=== PATIENT | female | born 1955 | race African-American/Black ===

== ENCOUNTER 2017-10-05 06:42 | Emergency (ER) | payer MEDICAID ==
[~2017-10-05] VITALS: Ht 167.6 cm; Wt 108.0 kg
[~2017-10-05 06:42] MED LIST: ACET-2178; ACET-3161; BENA20TA77; BUS5; DOCU-138; HYDR-3513; HYDR25TA; LANS30CA52; LEVA0.6320; LEVO125T; LORA10CA; METR500T; NAP5EC; RANI150T12; SEE MED SHEET; SEE MED. SHEET; SERT50TA
[2017-10-05] MEDS ORDERED: KETOROLAC 60MG/2ML VIAL IM ONE (11:00)
[2017-10-05 11:35] VITALS: BP 137/76
== END 2017-10-05 11:39 | disposition home or self-care (01) ==
LOC: ER 06:42
DX: G43.909 Migraine, unspecified, not intractable, without status migrainosus (principal); L08.9 Local infection of the skin and subcutaneous tissue, unspecified; I10 Essential (primary) hypertension; E03.9 Hypothyroidism, unspecified; M79.7 Fibromyalgia; J45.909 Unspecified asthma, uncomplicated; Z88.8 Allergy status to other drugs, medicaments and biological substances
CPT/HCPCS: 96372; 99283; J1885

== ENCOUNTER 2019-01-08 06:06 | Emergency (ER) | payer MEDICAID ==
[~2019-01-08] VITALS: Ht 167.6 cm; Wt 107.0 kg
[~2019-01-08 06:06] MED LIST changes: -RANI150T12; +RANI150T43
[2019-01-08] MEDS ORDERED: ALBUTEROL (0.083%) 2.5MG/3ML NEB HHN STA (07:20)
[2019-01-08 07:36] VITALS: BP 137/81
[2019-01-08] MEDS ORDERED: METOCLOPRAMIDE HCL 10MG TABLET PO ONE (08:45)
[2019-01-08] MEDS ORDERED: IBUPROFEN 800MG TABLET PO ONE (08:45)
[2019-01-08] MEDS ORDERED: KETOROLAC 60MG/2ML VIAL IM ONE (09:00)
== END 2019-01-08 09:30 | disposition home or self-care (01) ==
LOC: ER 06:06
DX: B34.9 Viral infection, unspecified (principal); R51 Headache; I10 Essential (primary) hypertension; J45.909 Unspecified asthma, uncomplicated; M19.90 Unspecified osteoarthritis, unspecified site; E03.9 Hypothyroidism, unspecified; Z90.710 Acquired absence of both cervix and uterus; Z88.8 Allergy status to other drugs, medicaments and biological substances
CPT/HCPCS: 71045; 93005; 94640; 96372; 99283; J1885; J7611; J8597

== ENCOUNTER 2020-04-06 11:29 | Emergency (ER) | payer MEDICAID ==
[~2020-04-06] VITALS: Ht 167.6 cm; Wt 105.0 kg
[~2020-04-06 11:29] MED LIST changes: -ACET-2178; +RANI-655; -RANI150T43; +TOPUD
[2020-04-06] MEDS ORDERED: KETOROLAC 30MG/ML VIAL IM ONE (12:15)
[2020-04-06 14:00] VITALS: BP 142/87
[2020-04-06] MEDS ORDERED: ONDANSETRON 4MG ODT PO ONE (14:00)
== END 2020-04-06 14:26 | disposition home or self-care (01) ==
LOC: ER 11:29
DX: S33.5XXA Sprain of ligaments of lumbar spine, initial encounter (principal); X58.XXXA Exposure to other specified factors, initial encounter; Y93.89 Activity, other specified; Y92.89 Other specified places as the place of occurrence of the external cause; Y99.8 Other external cause status; D64.9 Anemia, unspecified; J45.909 Unspecified asthma, uncomplicated; I10 Essential (primary) hypertension; Z90.710 Acquired absence of both cervix and uterus; Z98.890 Other specified postprocedural states; H40.9 Unspecified glaucoma; Z79.899 Other long term (current) drug therapy; Z88.8 Allergy status to other drugs, medicaments and biological substances
CPT/HCPCS: 72100; 73502; 96372; 99284; J1885; Q0162

== ENCOUNTER 2020-04-30 09:44 | Emergency (ER) | payer MEDICAID ==
[~2020-04-30] VITALS: Ht 167.6 cm; Wt 104.0 kg
[2020-04-30 11:17] LABS: BASOPHILS % 0.9 % (0.0-2.0); EOSINOPHILS % 3.7 % (0.0-5.0); HEMATOCRIT. 41.4 % (36.0-48.0); HEMOGLOBIN. 13.6 g/dL (12.0-16.0); LYMPHOCYTES % 20.5 % (20.0-50.0); MEAN CORPUSCULAR HEMOGLOBIN 26.9 pg (28.0-32.0); MEAN CORPUSCULAR VOLUME 81.8 fL (81.0-99.0); MEAN PLATELET VOLUME 7.7 fl (7.4-10.4); MONOCYTES % 6.2 % (2.0-8.0); NEUTROPHILS % 68.7 % (40.0-76.0); PLATELET 296 x1000/uL (130-400); RED BLOOD CELL COUNT 5.06 mill/uL (4.2-5.4); RED CELL DISTRIBUTION WIDTH 14.9 % (11.6-14.6)
[2020-04-30 11:20] LABS: CLARITY URINE CLEAR (CLEAR); COLOR URINE YELLOW (YELLOW); KETONES URINE NEGATIVE (NEGATIVE); LEUKOCYTE ESTERASE URINE NEGATIVE (NEGATIVE); NITRITE URINE NEGATIVE (NEGATIVE); OCCULT BLOOD URINE NEGATIVE (NEGATIVE); PH URINE 6.5 (4.5-8.0); PROTEIN URINE NEGATIVE (NEGATIVE); SPECIFIC GRAVITY URINE 1.019 (1.005-1.030)
[2020-04-30 11:21] LABS: CHLORIDE 106 mEq/L (98-107)
[2020-04-30] MEDS ORDERED: KETOROLAC 60MG/2ML VIAL IM ONE (11:45)
[2020-04-30] MEDS ORDERED: ONDANSETRON 4MG ODT PO ONE (12:00)
[2020-04-30 12:04] VITALS: BP 134/70
[2020-04-30] MEDS ORDERED: DEXAMETHASONE 4MG/ML 1ML VIAL IM ONE (13:00)
== END 2020-04-30 14:11 | disposition home or self-care (01) ==
LOC: ER 09:44
DX: M54.5 Low back pain (principal); H40.9 Unspecified glaucoma; J45.909 Unspecified asthma, uncomplicated; E05.90 Thyrotoxicosis, unspecified without thyrotoxic crisis or storm; I10 Essential (primary) hypertension; D64.9 Anemia, unspecified; Z88.8 Allergy status to other drugs, medicaments and biological substances; Z90.710 Acquired absence of both cervix and uterus
CPT/HCPCS: 36415; 73562; 80053; 81003; 85025; 96372; 99284; J1100; J1885; Q0162

== ENCOUNTER → 2020-07-25 | Outpatient (CLI) | payer MEDICARE, MEDICAID | END | disposition home or self-care (01) | LOC: MRI 08:39 | DX: M48.061 Spinal stenosis, lumbar region without neurogenic claudication (principal) | CPT/HCPCS: 72148 ==

== ENCOUNTER → 2021-01-14 | Outpatient (CLI) | payer MEDICARE, MEDICAID | END | disposition home or self-care (01) | LOC: RAD 08:43 | PROVIDERS: ATTEND Internal Medicine Cardiovascular Disease | DX: M25.552 Pain in left hip (principal); M25.562 Pain in left knee | CPT/HCPCS: 73502; 73552; 73562 ==

== ENCOUNTER 2021-12-09 12:05 | Emergency (ER) | payer MEDICARE, MEDICAID ==
[~2021-12-09] VITALS: Ht 165.1 cm; Wt 100.0 kg
[2021-12-09 12:10] VITALS: BP 152/73
[2021-12-09] MEDS ORDERED: ACETAMINOPHEN 325MG TABLET PO STA (12:51)
[2021-12-09] MEDS ORDERED: BACITRACIN ZINC OINT UDPKT TOP ONE (14:00)
== END 2021-12-09 14:27 | disposition home or self-care (01) ==
LOC: ER 12:05
DX: M79.671 Pain in right foot (principal); S90.851A Superficial foreign body, right foot, initial encounter; I10 Essential (primary) hypertension; M79.7 Fibromyalgia; J45.909 Unspecified asthma, uncomplicated; E03.9 Hypothyroidism, unspecified; H40.9 Unspecified glaucoma; W22.8XXA Striking against or struck by other objects, initial encounter; Y93.89 Activity, other specified; Y92.9 Unspecified place or not applicable; Z88.8 Allergy status to other drugs, medicaments and biological substances; Z90.710 Acquired absence of both cervix and uterus; Z91.048 Other nonmedicinal substance allergy status; Z98.890 Other specified postprocedural states
CPT/HCPCS: 73630; 99284

== ENCOUNTER → 2021-12-24 | Outpatient (CLI) | payer MEDICARE, MEDICAID | END | disposition home or self-care (01) | LOC: NM 07:44 | PROVIDERS: ATTEND Internal Medicine Endocrinology, Diabetes & Metabolism | DX: E04.2 Nontoxic multinodular goiter (principal); E21.0 Primary hyperparathyroidism | CPT/HCPCS: 76536; 78070; A9500; C1893 ==

== ENCOUNTER → 2022-02-11 | Day surgery (SDC) | payer MEDICARE, MEDICAID | END | disposition home or self-care (01) | LOC: RAD 09:44 | PROVIDERS: ATTEND Internal Medicine | DX: E04.1 Nontoxic single thyroid nodule (principal); Z79.899 Other long term (current) drug therapy; Z88.8 Allergy status to other drugs, medicaments and biological substances | CPT/HCPCS: 10005; 88172; 88173 ==

== ENCOUNTER 2022-10-29 12:23 | Emergency (ER) | payer MEDICARE, MEDICAID ==
[~2022-10-29] VITALS: Ht 167.6 cm; Wt 100.0 kg
[2022-10-29] MEDS ORDERED: ONDANSETRON 4MG ODT PO STA (12:40)
[2022-10-29 14:02] LABS: BASOPHILS % 0.3 % (0.0-2.0); HEMATOCRIT. 43.1 % (36.0-48.0); HEMOGLOBIN. 14.1 g/dL (12.0-16.0); LYMPHOCYTES % 22.5 % (20.0-50.0); MEAN CORPUSCULAR VOLUME 82.5 fL (81.0-99.0); MEAN PLATELET VOLUME 7.4 fl (7.4-10.4); MONOCYTES % 6.9 % (2.0-8.0); NEUTROPHILS % 69.3 % (40.0-76.0); PLATELET 323 x1000/uL (130-400); RED BLOOD CELL COUNT 5.22 mill/uL (4.2-5.4); RED CELL DISTRIBUTION WIDTH 15.3 % (11.6-14.6)
[2022-10-29 14:13] LABS: CHLORIDE 102 mEq/L (98-107)
[2022-10-29] MEDS ORDERED: LIDOCAINE 5% PATCH TOP SCH (14:45)
[2022-10-29] MEDS ORDERED: ACETAMINOPHEN 325MG TABLET PO ONE (14:45)
[2022-10-29 15:11] VITALS: BP 134/62
[2022-10-29 16:06] LABS: CLARITY URINE CLEAR (CLEAR); COLOR URINE YELLOW (YELLOW); KETONES URINE NEGATIVE (NEGATIVE); LEUKOCYTE ESTERASE URINE NEGATIVE (NEGATIVE); NITRITE URINE NEGATIVE (NEGATIVE); OCCULT BLOOD URINE NEGATIVE (NEGATIVE); PROTEIN URINE NEGATIVE (NEGATIVE); SPECIFIC GRAVITY URINE 1.013 (1.005-1.030); UROBILINOGEN URINE 0.2 E.U./dL (0.2-1.0)
[2022-10-29] MEDS ORDERED: KETOROLAC 60MG/2ML VIAL IM ONE (17:00)
[2022-10-29] MEDS ORDERED: CYCL10TA21 PO (17:23)
== END 2022-10-29 17:55 | disposition home or self-care (01) ==
LOC: ER 12:23
DX: R10.9 Unspecified abdominal pain (principal); I10 Essential (primary) hypertension; Z91.048 Other nonmedicinal substance allergy status; Z91.018 Allergy to other foods; Z88.8 Allergy status to other drugs, medicaments and biological substances; Z88.9 Allergy status to unspecified drugs, medicaments and biological substances; Z88.1 Allergy status to other antibiotic agents; Z79.899 Other long term (current) drug therapy; Z98.890 Other specified postprocedural states
CPT/HCPCS: 36415; 74176; 80053; 81003; 81025; 83690; 85025; 96372; 99285; J1885; Q0162

== ENCOUNTER → 2023-02-18 | Outpatient (CLI) | payer MEDICARE, MEDICAID ==
[~2023-02-18] MED LIST changes: +CYCL10TA21 PO
== END | disposition home or self-care (01) ==
LOC: US 07:44
PROVIDERS: ATTEND Internal Medicine
DX: M85.642 Other cyst of bone, left hand (principal); R06.00 Dyspnea, unspecified
CPT/HCPCS: 71250; 76881

== ENCOUNTER → 2024-04-23 | Outpatient (CLI) | payer MEDICARE, MEDICAID ==
[~2024-04-23] MED LIST changes: +IOHEXOL-350 100 ML BOTTLE ONE
== END | disposition home or self-care (01) ==
LOC: CT 07:32
PROVIDERS: ATTEND Internal Medicine
DX: J32.0 Chronic maxillary sinusitis (principal); G31.9 Degenerative disease of nervous system, unspecified; I67.82 Cerebral ischemia; R29.810 Facial weakness
CPT/HCPCS: 70496; 70487; Q9967

== ENCOUNTER 2024-09-09 04:58 | Emergency (ER) | payer MEDICARE, MEDICAID ==
[~2024-09-09] VITALS: Ht 165.1 cm; Wt 97.0 kg
[~2024-09-09 04:58] MED LIST changes: -ACET-3161; -BUS5; -HYDR-3513; -IOHEXOL-350 100 ML BOTTLE ONE; -LEVA0.6320; +LEVO750T68 PO; -LORA10CA; +METH4TAB95 MT; -METR500T; -NAP5EC; -RANI-655; -SEE MED SHEET; -SEE MED. SHEET; -TOPUD
[2024-09-09 05:12] VITALS: TEMP 98.3; O2SAT 98
[2024-09-09 08:44] LABS: CLARITY URINE CLOUDY (CLEAR); COLOR URINE YELLOW (YELLOW); GLUCOSE URINE 3+ (NEGATIVE); KETONES URINE NEGATIVE (NEGATIVE); LEUKOCYTE ESTERASE URINE NEGATIVE (NEGATIVE); NITRITE URINE NEGATIVE (NEGATIVE); OCCULT BLOOD URINE NEGATIVE (NEGATIVE); PROTEIN URINE NEGATIVE (NEGATIVE); SPECIFIC GRAVITY URINE 1.041 (1.005-1.030); UROBILINOGEN URINE 0.2 E.U./dL (0.2-1.0)
[2024-09-09 08:58] VITALS: BP 134/76; PULSE 74; RESP 16
[2024-09-09] MEDS: KETOROLAC 30MG/ML VIAL IM ONE (08:58)
[2024-09-09] MEDS: METHOCARBAMOL 750MG TABLET PO SCH (09:00)
[2024-09-09 09:16] LABS: SQUAMOUS EPITHELIAL CELL URINE 2+ /lpf (RARE/1+)
[2024-09-09 09:17] LABS: BACTERIA URINE NONE SEEN; RBC URINE 0-2 /hpf (0-2); YEAST URINE RARE
[2024-09-09 09:18] LABS: WBC URINE 0-2 /hpf (0-2)
[2024-09-09 09:48] LABS: BASOPHILS % 0.4 % (0.0-2.0); EOSINOPHILS % 2.7 % (0.0-5.0); HEMOGLOBIN. 13.4 g/dL (12.0-16.0); LYMPHOCYTES % 18.5 % (20.0-50.0); MEAN CORPUSCULAR HEMOGLOBIN 27.7 pg (28.0-32.0); MEAN CORPUSCULAR HGB CONC 32.7 g/dL (31.0-37.0); MEAN CORPUSCULAR VOLUME 84.6 fL (81.0-99.0); MEAN PLATELET VOLUME 7.5 fl (7.4-10.4); MONOCYTES % 9.7 % (2.0-8.0); NEUTROPHILS % 68.7 % (40.0-76.0); PLATELET 298 x1000/uL (130-400); RED BLOOD CELL COUNT 4.84 mill/uL (4.2-5.4); RED CELL DISTRIBUTION WIDTH 15.7 % (11.6-14.6); WHITE BLOOD COUNT 10.8 x1000/uL (4.5-11.0)
[2024-09-09 10:00] LABS: CHLORIDE 108 mEq/L (98-107); POTASSIUM 3.9 mEq/L (3.5-5.1); SODIUM 143 mEq/L (136-145)
[2024-09-09 10:01] LABS: CARBON DIOXIDE 28 mEq/L (21-32)
[2024-09-09 10:02] LABS: CALCIUM 9.9 mg/dL (8.7-10.4)
[2024-09-09 10:06] LABS: CREATININE 0.6 mg/dL (0.6-1.0); GLUCOSE 111 mg/dL (70-105); UREA NITROGEN BLOOD 9 mg/dL (9-23)
[2024-09-09] MEDS ORDERED: METH-773 MT (10:29)
[2024-09-09] MEDS ORDERED: KETO10TA2 MT (10:30)
== END 2024-09-09 10:51 | disposition home or self-care (01) ==
LOC: ER 04:58
DX: M54.40 Lumbago with sciatica, unspecified side (principal); E03.9 Hypothyroidism, unspecified; J45.909 Unspecified asthma, uncomplicated; I10 Essential (primary) hypertension; H40.9 Unspecified glaucoma; Z79.890 Hormone replacement therapy; Z98.890 Other specified postprocedural states
CPT/HCPCS: 99285; 74176; 80048; 81003; 85025; 87086; 36415; 96372; J1885

== ENCOUNTER → 2025-03-01 | Outpatient (CLI) | payer MEDICARE, OTHER ==
[~2025-03-01] MED LIST changes: +KETO10TA2 MT; +METH-773 MT
== END | disposition home or self-care (01) ==
LOC: US 13:34
PROVIDERS: ATTEND Specialist
DX: E04.2 Nontoxic multinodular goiter (principal)
CPT/HCPCS: 76536

== ENCOUNTER 2025-08-06 11:19 | Emergency (ER) | payer MEDICAID, MEDICARE, OTHER ==
[~2025-08-06] VITALS: Ht 167.6 cm; Wt 82.0 kg
[2025-08-06 11:21] VITALS: O2SAT 97
[2025-08-06 11:32] VITALS: PULSE 88; RESP 16; TEMP 37.2; O2SAT 99
[2025-08-06 13:19] LABS: BASOPHILS % 0.5 % (0.0-2.0); EOSINOPHILS % 2.4 % (0.0-5.0); HEMATOCRIT. 44.0 % (36.0-48.0); HEMOGLOBIN. 14.0 g/dL (12.0-16.0); LYMPHOCYTES % 16.9 % (20.0-50.0); MEAN PLATELET VOLUME 7.4 fl (7.4-10.4); MONOCYTES % 7.4 % (2.0-8.0); NEUTROPHILS % 72.8 % (40.0-76.0); PLATELET 294 x1000/uL (130-400); RED BLOOD CELL COUNT 5.30 mill/uL (4.2-5.4); RED CELL DISTRIBUTION WIDTH 15.2 % (11.6-14.6)
[2025-08-06 13:31] LABS: INR 1.0
[2025-08-06 13:44] LABS: CREATININE 0.8 mg/dL (0.6-1.0); UREA NITROGEN BLOOD 6 mg/dL (9-23)
[2025-08-06 13:46] LABS: ASPARTATE AMINOTRANSFERASE 19 IU/L (<34); BILIRUBIN DIRECT 0.1 mg/dL (<=3.0); BILIRUBIN TOTAL 0.4 mg/dL (0.1-1.0); PROTEIN TOTAL 6.6 g/dL (6.0-8.3)
[2025-08-06 15:29] VITALS: BP 146/79
== END 2025-08-06 15:32 | disposition home or self-care (01) ==
LOC: ER 11:19
DX: R22.31 Localized swelling, mass and lump, right upper limb (principal); E83.52 Hypercalcemia; I10 Essential (primary) hypertension; J45.909 Unspecified asthma, uncomplicated
CPT/HCPCS: 36415; 80048; 80076; 85025; 93971; 99284

== ENCOUNTER → 2025-08-14 | Outpatient (CLI) | payer MEDICARE | END | disposition home or self-care (01) | LOC: RAD 07:36 | PROVIDERS: ATTEND Internal Medicine | DX: S59.801A Other specified injuries of right elbow, initial encounter (principal); M62.89 Other specified disorders of muscle; H57.89 Other specified disorders of eye and adnexa; X58.XXXA Exposure to other specified factors, initial encounter; Y93.89 Activity, other specified; Y92.89 Other specified places as the place of occurrence of the external cause; Y99.8 Other external cause status | CPT/HCPCS: 73200 ==

== ENCOUNTER → 2025-10-16 | Outpatient (CLI) | payer MEDICARE, OTHER | END | disposition home or self-care (01) | LOC: RAD 08:49 | PROVIDERS: ATTEND Internal Medicine | DX: J45.909 Unspecified asthma, uncomplicated (principal) | CPT/HCPCS: 71046 ==